=== PATIENT | female | born 1985 | race Hispanic/Latino ===

== ENCOUNTER 2016-07-25 19:11 | Emergency (ER) | payer SELFPAY ==
[2016-07-25] MEDS ORDERED: Tetracaine HCl 0.5% Ophth Soln 2 ML Bottle ONE (19:25)
[2016-07-25] MEDS ORDERED: Fluorescein Opthalmic Strip ONE (19:25)
[2016-07-25] MEDS ORDERED: HYDROcodone/Acetaminophen 10/325 mg Tablet ONE (19:38)
--- NOTE | 2016-07-25 19:53 | ERRECORD ---
[facility] EMERGENCY RECORD HPI EYE COMPLAINT (19:42 RWAG) CHIEF COMPLAINT: Patient presents for evaluation of pain, to bilateral eyes, Patient presents for evaluation of redness, to bilateral eyes. HISTORIAN: History provided by patient, wears soft contacts. MECHANISM OF INJURY: Unknown. LOCATION: Symptoms are localized, most severe in bilateral eyes. QUALITY: Described as similar to previous episodes. SEVERITY: Maximum severity of symptoms severe, Currently symptoms are severe, Maximum severity of pain rated as 9/10, Current severity of pain rated as 9/10. TIME COURSE: Gradual onset of symptoms, There has been no change in the patient's symptoms over time. ASSOCIATED WITH: Associated with contact use, constant. EXACERBATED BY: Patient's condition exacerbated by nothing. RELIEVED BY: Patient's condition relieved by nothing. ROS (19:44 RWAG) CONSTITUTIONAL: Negative constitutional review of systems. EYES: Historian reports eye pain, reports eye redness, reports tearing. ENT: Negative ears, nose, throat review of systems. CARDIOVASCULAR: Negative cardiovascular review of systems. RESPIRATORY: Negative respiratory review of systems. GI: Negative gastrointestinal review of systems. GENITOURINARY FEMALE: Negative genitourinary review of systems. MUSCULOSKELETAL: Negative musculoskeletal review of systems. SKIN: Negative skin review of systems. NEUROLOGIC: Negative neurologic review of systems. ENDOCRINE: Negative endocrine review of systems. HEMO/LYMPHATIC: Normal hematologic/lymphatic system review. ALLERGIC/IMMUNOLOGIC: Normal allergy/immunologic system review. PSYCHIATRIC: Negative psychiatric review of systems. NOTES: All systems reviewed, negative except as described above. PAST MEDICAL HISTORY (19:19 IHAC) MEDICAL HISTORY: No past medical history, Flu vaccine not up to date, Tetanus immunization up to date. FEMALE SURGICAL HISTORY: WITH D&C,. Heart surgery to take out extra tissue on 2012. PSYCHIATRIC HISTORY: No previous psychiatric history. SOCIAL HISTORY: Patient denies alcohol use, Patient denies drug use, Patient currently uses tobacco, smokes cigarettes, daily, patient has smoked for one year, Patient smokes 1/2 packs per day. &a-1R&a+25V*p+0X*f8131D*c202B*c15G*c2P*p-0X&a-25V&a+1R Name: Marlee Montoya : 1985 F31 MedRec: [id number] AcctNum: [id number] Prepared: Kelsey Jul 25, 2016 20:04 by Interface Page 1 of 3 pMD [facility] EMERGENCY RECORD KNOWN ALLERGIES No Known Drug Allergies CURRENT MEDICATIONS (19:17 IHAC) None VITAL SIGNS (19:17 IHAC) VITAL SIGNS: BP: 126/83, Pulse: 83, Resp: 18 (Non-Labored), Temp: 98.2 (Oral), Pain: 10, O2 sat: 98 on Room Air, Time: 07/25/2016 19:17. PHYSICAL EXAM (19:44 RWAG) CONSTITUTIONAL: Vital Signs Reviewed. HEAD: Head exam normal. EYES: Conjunctiva, injected bilaterally, not edematous, Sclera normal, Atraumatic, Eye exam included findings of anterior chamber clear. ENT: ENT exam normal. NECK: Neck exam normal. RESPIRATORY CHEST: Respiratory and chest exam normal. CARDIOVASCULAR: Cardiovascular assessment normal. ABDOMEN FEMALE: Abdominal exam normal. BACK: Back exam normal. UPPER EXTREMITY: Upper extremity exam normal. LOWER EXTREMITY: Lower extremity exam normal. NEURO: Neuro exam normal. SKIN: Skin exam normal. LYMPHATIC: Lymphatic exam normal. PSYCHIATRIC: Psychiatric exam normal. MEDICATION ADMINISTRATION SUMMARY Drug Name: [place], Dose Ordered: 1 tab(s), Route: Oral, Status: Given, Time: 19:42 07/25/2016, Drug Name: tetracaine HCl, Dose Ordered: 1 Drps, Route: Eyes Both, Status: Given, Time: 19:41 07/25/2016, Detailed record available in Medication Service section. PROBLEM LIST No recorded problems DIAGNOSIS (19:36 RWAG) FINAL: PRIMARY: UNS ACUTE CONJUNCTIVITIS BILATERAL. PRESCRIPTION Ultram: TABLET : 50 mg : ORAL : Quantity: 2 Unit: tab(s) Route: ORAL Schedule: every 6 hours PRN Dispense: 20 Unit: tab(s) May substitute. Refills: No Refills . (19:37 RWAG) NOTES: No Refills. (19:37 RWAG) gentamicin ophthalmic: DROPS : 0.3 % : OPHTHALMIC : Quantity: &a-1R&a+25V*p+0X*t5967P*c202B*c15G*c2P*p-0X&a-25V&a+1R Name: Marlee Montoya : 1985 F31 MedRec: [id number] AcctNum: [id number] Prepared: FriJul 25, 2016 20:04 by Interface Page 2 of 3 pMD [facility] EMERGENCY RECORD 2 Unit: gtt Route: OPHTHALMIC Schedule: every 8 hours PRN Dispense: 1 Unit: Tube May substitute. Refills: No Refills . (19:39 RWAG) NOTES: one bottle No Refills. (19:39 RWAG) Gentafair ophthalmic: DROPS : 0.3 % : OPHTHALMIC : Quantity: 2 Unit: gtt Route: OPHTHALMIC Schedule: every 6 hours PRN Dispense: 1 Unit: vial(s) May substitute. Refills: No Refills . (19:41 RWAG) NOTES: one bottle No Refills. (19:41 RWAG) DISPOSITION PATIENT: Disposition Type: Discharge, Disposition: *Discharge Home, Disposition Transport: Car, Condition: Improved. (19:36 RWAG) Patient left the department. (19:49 EPIE) Ponce: EPIE=RAIN Owen, Denisse IHAC=Alejandra Putnam RWAG=MD Ant, Deny &a-1R&a+25V*p+0X*f0580J*c202B*c15G*c2P*p-0X&a-25V&a+1R Name: Marlee Montoya : 1985 1 MedRec: [id number] AcctNum: [id number] Prepared: FriJul 25, 2016 20:04 by Interface Page 3 of 3 pMD MTDD
--- NOTE | 2016-07-25 20:02 | PICIS ---
[facility] EMERGENCY RECORD TRIAGE (19:17 IHAC) TRIAGE NOTES: Pt states that her eyes are burning starting yesterday. States she put in some eye drops and have been burning since. Pt has removed contacts. (19:17 IHAC) PATIENT: NAME: Marlee Montoya, AGE: 31, GENDER: female, : Sun 1985, TIME OF GREET: Kelsey Jul 25, 2016 19:12, PREFERRED LANGUAGE: Beninese, ETHNICITY: or , ECODE BILLING MAP: [facility], SSN: [id number], Zip Code: [address], KG WEIGHT: 52.16, PHONE: , , , PERSON ID: [id number], PCP: NONE. (19:17 IHAC) COMPLAINT: EYES IRRITATED; TOP OF HEAD PAIN. (19:17 IHAC) ADMISSION: URGENCY: 4 Non Urgent, ADMISSION SOURCE: Home, TRANSPORT: CAR, BED: TRIAGE. (19:17 IHAC) TRIAGE SCREENING: Patient denies suicidal ideation, Patient denies presence of domestic violence. (19:19 IHAC) TREATMENTS IN PROGRESS: Treatments given Prehospital: none. (19:19 IHAC) PROVIDERS: TRIAGE NURSE: Alejandra Putnam. (19:17 IHAC) VITAL SIGNS: BP 126/83, Pulse 83, Resp 18, (Non-Labored), Temp 98.2, (Oral), Pain 10, O2 Sat 98, on Room Air, Time 07/25/2016 19:17. (19:17 IHAC) PREVIOUS VISIT ALLERGIES: No Known Drug Allergies. (19:17 IHAC) No Known Drug Allergies. (19:19 IHAC) KNOWN ALLERGIES No Known Drug Allergies CURRENT MEDICATIONS (19:17 IHAC) None VITAL SIGNS (19:17 IHAC) VITAL SIGNS: BP: 126/83, Pulse: 83, Resp: 18 (Non-Labored), Temp: 98.2 (Oral), Pain: 10, O2 sat: 98 on Room Air, Time: 07/25/2016 19:17. NURSING ASSESSMENT: EYE (19:23 EPIE) CONSTITUTIONAL: Patient arrives ambulatory, Gait steady, History obtained from patient, Patient appears, uncomfortable, Patient cooperative, Patient alert, Oriented to person, place and time, Skin warm, Skin dry, Skin normal in color, Mucous membranes pink, Mucous membranes moist, Patient is well-groomed, Pt states that her eyes are burning starting yesterday. States she put in some eye drops and have been burning since. Pt has removed contacts. PAIN: burning pain, Both eyes, PT REPORTS PAIN ON FACE AROUND EYES AND HEAD PAIN, Onset of pain 07/24/2016, on a scale 0-10 patient rates pain as 10, Pain exacerbated by nothing, Nothing has been tried to alleviate the pain. EYES: Eye assessment findings include orbits normal, Eye lids normal, Conjunctiva, injected on the left, injected on the right, Sclera normal, Cornea clear, Iris &a-1R&a+25V*p+0X*w0726J*c202B*c15G*c2P*p-0X&a-25V&a+1R Name: Marlee Montoya : 1985 F31 MedRec: [id number] AcctNum: [id number] Prepared: [facility] Jul 25, 2016 20:10 by Interface Page 1 of 5 pMD [facility] EMERGENCY RECORD normal, Pupils equally round and reactive to light, no associated exposure to chemical or fluids, Associated with photophobia, Associated with tearing, to bilateral eyes, Visual acuity performed, Left eye: 20/40, Right eye: 20/40, Both eyes: 20/30, Notes: PT PUT ON VISINE BEOFRE HAVING PAIN IN BILATERAL EYES. NURSING PROCEDURE: DISCHARGE NOTE (19:46 EPIE) DISCHARGE: Patient discharged to home, ambulating without assistance, friend driving, accompanied by friend, Summary of Care printed/ provided, Discharge instructions given to patient, Simple or moderate discharge teaching performed, Prescriptions given and instructions on side effects given, Name of prescription(s) given: gentamicin, ultram, Above person(s) verbalized understanding of discharge instructions and follow-up care. BELONGINGS: Belongings and valuables with patient upon arrival to the Emergency Department include:, Belongings and valuables with patient at time of discharge include:, Belongings remain with patient, Valuables remain with patient. MEDICATION ADMINISTRATION SUMMARY Drug Name: [place], Dose Ordered: 1 tab(s), Route: Oral, Status: Given, Time: 19:42 07/25/2016, Drug Name: tetracaine HCl, Dose Ordered: 1 Drps, Route: Eyes Both, Status: Given, Time: 19:41 07/25/2016, Detailed record available in Medication Service section. MEDICATION SERVICE Dante: Order: Dante (hydrocodone bitartrate/acetaminophen) - Dose: 1 tab(s) : Oral Schedule: Now Ordered by: Deny Cain MD Entered by: Deny Cain MD [facility] Jul 25, 2016 19:36 , Acknowledged by: Denisse Owen RN [facility] Jul 25, 2016 19:37 Documented as given by: Denisse Owen RN [facility] Jul 25, 2016 19:42 Patient, Medication, Dose, Route and Time verified prior to administration. Amount given: 10-325mg, Site: Medication administered P.O., Patient appears Awake and alert- acceptable, Correct patient, time, route, dose and medication confirmed prior to administration, Patient advised of actions and side-effects prior to administration, Allergies confirmed and medications reviewed prior to administration, Patient in position of comfort, Side rails up, Cart in lowest position, Family at bedside, Dosage verified by ERMD verbally. tetracaine HCl: Order: tetracaine HCl - Dose: 1 Drps : Eyes Both Schedule: Now Ordered by: Deny Cain MD Entered by: Deny Cain MD [facility] Jul 25, 2016 19:35 , &a-1R&a+25V*p+0X*s1395D*c202B*c15G*c2P*p-0X&a-25V&a+1R Name: Marlee Montoya : 1985 F31 MedRec: [id number] AcctNum: [id number] Prepared: Kelsey Jul 25, 2016 20:10 by Interface Page 2 of 5 pMD [facility] EMERGENCY RECORD Acknowledged by: Denisse Owen RN [facility] Jul 25, 2016 19:35 Documented as given by: Denisse Owen RN [facility] Jul 25, 2016 19:41 Patient, Medication, Dose, Route and Time verified prior to administration. Amount given: 1DROP, Site: Medication administered bilaterally, Correct patient, time, route, dose and medication confirmed prior to administration, Patient advised of actions and side-effects prior to administration, Allergies confirmed and medications reviewed prior to administration, Administered by Ant KIM. HPI EYE COMPLAINT (19:42 RW) CHIEF COMPLAINT: Patient presents for evaluation of pain, to bilateral eyes, Patient presents for evaluation of redness, to bilateral eyes. HISTORIAN: History provided by patient, wears soft contacts. MECHANISM OF INJURY: Unknown. LOCATION: Symptoms are localized, most severe in bilateral eyes. QUALITY: Described as similar to previous episodes. SEVERITY: Maximum severity of symptoms severe, Currently symptoms are severe, Maximum severity of pain rated as 9/10, Current severity of pain rated as 9/10. TIME COURSE: Gradual onset of symptoms, There has been no change in the patient's symptoms over time. ASSOCIATED WITH: Associated with contact use, constant. EXACERBATED BY: Patient's condition exacerbated by nothing. RELIEVED BY: Patient's condition relieved by nothing. ROS (19:44 RWAG) CONSTITUTIONAL: Negative constitutional review of systems. EYES: Historian reports eye pain, reports eye redness, reports tearing. ENT: Negative ears, nose, throat review of systems. CARDIOVASCULAR: Negative cardiovascular review of systems. RESPIRATORY: Negative respiratory review of systems. GI: Negative gastrointestinal review of systems. GENITOURINARY FEMALE: Negative genitourinary review of systems. MUSCULOSKELETAL: Negative musculoskeletal review of systems. SKIN: Negative skin review of systems. NEUROLOGIC: Negative neurologic review of systems. ENDOCRINE: Negative endocrine review of systems. HEMO/LYMPHATIC: Normal hematologic/lymphatic system review. ALLERGIC/IMMUNOLOGIC: Normal allergy/immunologic system review. PSYCHIATRIC: Negative psychiatric review of systems. NOTES: All systems reviewed, negative except as described above. PAST MEDICAL HISTORY (19:19 IHAC) &a-1R&a+25V*p+0X*o2681H*c202B*c15G*c2P*p-0X&a-25V&a+1R Name: Marlee Montoya : 1985 F31 MedRec: [id number] AcctNum: [id number] Prepared: Kelsey Jul 25, 2016 20:10 by Interface Page 3 of 5 pMD [facility] EMERGENCY RECORD MEDICAL HISTORY: No past medical history, Flu vaccine not up to date, Tetanus immunization up to date. FEMALE SURGICAL HISTORY: WITH D&C,. Heart surgery to take out extra tissue on 2012. PSYCHIATRIC HISTORY: No previous psychiatric history. SOCIAL HISTORY: Patient denies alcohol use, Patient denies drug use, Patient currently uses tobacco, smokes cigarettes, daily, patient has smoked for one year, Patient smokes 1/2 packs per day. PHYSICAL EXAM (19:44 RWAG) CONSTITUTIONAL: Vital Signs Reviewed. HEAD: Head exam normal. EYES: Conjunctiva, injected bilaterally, not edematous, Sclera normal, Atraumatic, Eye exam included findings of anterior chamber clear. ENT: ENT exam normal. NECK: Neck exam normal. RESPIRATORY CHEST: Respiratory and chest exam normal. CARDIOVASCULAR: Cardiovascular assessment normal. ABDOMEN FEMALE: Abdominal exam normal. BACK: Back exam normal. UPPER EXTREMITY: Upper extremity exam normal. LOWER EXTREMITY: Lower extremity exam normal. NEURO: Neuro exam normal. SKIN: Skin exam normal. LYMPHATIC: Lymphatic exam normal. PSYCHIATRIC: Psychiatric exam normal. EVENTS TRANSFER: Triage to Emergency Triage. (FriJul 25, 2016 19:17 IHAC) Emergency Triage to Emergency Room -05. (19:17 IHAC) Removed from Emergency Emergency Room -05. (19:49 EPIE) PROBLEM LIST No recorded problems DIAGNOSIS (19:36 RWAG) FINAL: PRIMARY: UNS ACUTE CONJUNCTIVITIS BILATERAL. DISPOSITION PATIENT: Disposition Type: Discharge, Disposition: *Discharge Home, Disposition Transport: Car, Condition: Improved. (19:36 RWAG) Patient left the department. (19:49 EPIE) INSTRUCTION (19:41 RWAG) DISCHARGE: CONJUNCTIVITIS, BACTERIAL. SPECIAL: Follow-up with your PCP. &a-1R&a+25V*p+0X*c1728S*c202B*c15G*c2P*p-0X&a-25V&a+1R Name: Marlee Montoya : 1985 F31 MedRec: [id number] AcctNum: [id number] Prepared: FriJul 25, 2016 20:10 by Interface Page 4 of 5 pMD [facility] EMERGENCY RECORD PRESCRIPTION Ultram: TABLET : 50 mg : ORAL : Quantity: 2 Unit: tab(s) Route: ORAL Schedule: every 6 hours PRN Dispense: 20 Unit: tab(s) May substitute. Refills: No Refills . (19:37 RWAG) NOTES: No Refills. (19:37 RWAG) gentamicin ophthalmic: DROPS : 0.3 % : OPHTHALMIC : Quantity: 2 Unit: gtt Route: OPHTHALMIC Schedule: every 8 hours PRN Dispense: 1 Unit: Tube May substitute. Refills: No Refills . (19:39 RWAG) NOTES: one bottle No Refills. (19:39 RWAG) Gentafair ophthalmic: DROPS : 0.3 % : OPHTHALMIC : Quantity: 2 Unit: gtt Route: OPHTHALMIC Schedule: every 6 hours PRN Dispense: 1 Unit: vial(s) May substitute. Refills: No Refills . (19:41 RWAG) NOTES: one bottle No Refills. (19:41 RWAG) IMAGING (19:48 EPIE) *DISCHARGE INSTRUCTIONS RECEIPT: Image captured from scanner. *SUPPLY CHARGE SHEET: Image captured from scanner. ADMIN (19:59 RWAG) DIGITAL SIGNATURE: MD Cain Richard. Ponce: EPIE=RAIN Owen, Denisse IHAC=Alejandra Putnam RWAG=MD Cain Richard &a-1R&a+25V*p+0X*t8461U*c202B*c15G*c2P*p-0X&a-25V&a+1R Name: Marlee Montoya : 1985 F31 MedRec: [id number] AcctNum: [id number] Prepared: [facility] Jul 25, 2016 20:10 by Interface Page 5 of 5 pMD MTDD
== END 2016-07-25 19:46 | disposition home or self-care (01) ==
LOC: NAV ERS 19:11
DX: H10.33 Unspecified acute conjunctivitis, bilateral (principal); F17.210 Nicotine dependence, cigarettes, uncomplicated
CPT/HCPCS: 99283

== ENCOUNTER 2016-10-22 11:40 | Emergency (ER) | payer SELFPAY ==
--- NOTE | 2016-10-22 12:19 | RAD ---
PA AND LATERAL CHEST HISTORY: A 31-year-old female with a cough, as well as a sore throat, congestion, and a headache. FINDINGS: Heart size is normal. Lungs are clear. No acute intrathoracic disease. IMPRESSION: 1. No acute intrathoracic disease. 2. No evidence for pneumonia. POS: [facility]
== END 2016-10-22 13:03 | disposition home or self-care (01) ==
LOC: NAV ERS 11:40
DX: J20.9 Acute bronchitis, unspecified (principal); M94.0 Chondrocostal junction syndrome [Tietze]; F17.210 Nicotine dependence, cigarettes, uncomplicated; Z71.6 Tobacco abuse counseling
CPT/HCPCS: 71020

== ENCOUNTER 2017-03-13 08:29 | Emergency (ER) | payer BC ==
[2017-03-13] MEDS ORDERED: Ketorolac Tromethamine 30 MG/ML VIAL ONE (08:47)
[2017-03-13] MEDS ORDERED: Ondansetron ODT 4 MG TAB ONE (08:48)
[2017-03-13 09:00] LABS: Bilirubin Negative (Negative); Blood, Urine Trace (Negative); Clarity Clear (Clear); Glucose, Urine (Dipstick) Negative (Negative); Leukocyte Negative (Negative); Nitrite Negative (Negative); Protein, Urine (Dipstick) Negative (Neg-Trace); Urobilinogen 0.2 mg/dL (0.2-1.0)
[2017-03-13 09:03] LABS: #Basophils 0.1 thou/uL (0.0-0.2); #Eosinphils 0.1 thou/uL (0.0-0.7); #Lymphocytes 2.9 thou/uL (1.20-3.40); #Monocytes 0.3 thou/uL (0.11-0.59); #Neutrophils 3.2 thou/uL (1.40-6.50); %Basophils 1.4 % (0.0-1.0); %Lymphocytes 44.5 % (21.0-51.0); %Monocytes 4.6 % (0.0-10.0); %Neutrophils 48.6 % (42.0-75.0); Hemoglobin 14.4 g/dL (12.0-16.0); Mean Corpuscular HGB CONC 33.1 g/dL (32.0-36.0); Mean Corpuscular Hemoglobin 30.9 pg (27.0-31.0); Mean Corpuscular Volume 93.4 fl (81.0-99.0); Platelet Count 230 thou/uL (130-400); RBC Distribution Width 11.2 % (11.5-14.5); Red Blood Cell (RBC) Count 4.67 mill/uL (4.20-5.40); White Blood Cell (WBC) Count 6.5 thou/uL (4.8-10.8)
[2017-03-13 09:07] LABS: Pregnancy Test - Urine (BHCG) Negative (NEGATIVE); Pregu Control Background? CLEAR/WHITE (CLR/WHITE); Pregu Control Bar Appear? YES (CONTROL BAR)
[2017-03-13 09:08] LABS: Bacteria/HPF Rare-Few HPF (None Seen); RBC/HPF 0-3 HPF (0-3); WBC/HPF 0-3 HPF (0-3)
[2017-03-13 09:09] LABS: Other Microscopic Description NO
[2017-03-13 09:20] LABS: ALT (SGPT) 10 U/L (8-55); AST (SGOT) 18 U/L (5-34); Albumin 4.8 g/dL (3.5-5.0); Alkaline Phosphatase 52 U/L (40-150); Anion Gap 13 mmol/L (10-20); BUN (Urea Nitrogen) 7 mg/dL (7.0-18.7); Bilirubin, Total 0.4 mg/dL (0.2-1.2); Calc. Creatinine Clearance 0 mL/min (70-130); Calcium 9.1 mg/dL (7.8-10.44); Carbon Dioxide 25 mmol/L (22-29); Chloride 105 mmol/L (98-107); Estimated GFR-MDRD Greater than 90; Globulin 3.5 g/dL (2.4-3.5); Glucose 81 mg/dL (70-105); Lipase 24 U/L (8-78); Potassium 3.7 mmol/L (3.5-5.1); Protein, Total 8.3 g/dL (6.0-8.3); Sodium 139 mmol/L (136-145)
== END 2017-03-13 10:07 | disposition home or self-care (01) ==
LOC: NAV ERS 08:29
DX: R10.13 Epigastric pain (principal); R10.33 Periumbilical pain; R11.0 Nausea; F17.210 Nicotine dependence, cigarettes, uncomplicated
CPT/HCPCS: 80053; 81003; 81015; 81025; 83690; 85025; 86677; 96374; J1885; Q0162

== ENCOUNTER 2017-09-04 10:22 | Emergency (ER) | payer BC ==
[2017-09-04] MEDS ORDERED: Sulfameth/Trimethoprim DS 800-160mg TAB ONE (11:03)
== END 2017-09-04 11:19 ==
LOC: NAV ERS 10:22
DX: L02.413 Cutaneous abscess of right upper limb (principal); F17.210 Nicotine dependence, cigarettes, uncomplicated
CPT/HCPCS: 99406

== ENCOUNTER 2019-09-17 12:06 | Emergency (ER) | payer BC, SELFPAY ==
[2019-09-17] MEDS ORDERED: Ibuprofen 200 MG TAB ONE (12:21)
[2019-09-17] MEDS ORDERED: Sodium Chloride 0.9% 1,000 ML ONE (13:09)
[2019-09-17] MEDS ORDERED: Ondansetron PF 4 MG/2 ML Vial ONE (13:09)
[2019-09-17 13:19] LABS: #Basophils 0.1 thou/uL (0.0-0.2); #Lymphocytes 0.9 thou/uL (1.20-3.40); #Monocytes 0.6 thou/uL (0.11-0.59); #Neutrophils 4.5 thou/uL (1.40-6.50); %Basophils 1.4 % (0.0-1.0); %Lymphocytes 15.2 % (21.0-51.0); %Monocytes 9.6 % (0.0-10.0); %Neutrophils 73.8 % (42.0-75.0); Hemoglobin 14.7 g/dL (12.0-16.0); Mean Corpuscular HGB CONC 34.5 g/dL (32.0-36.0); Mean Corpuscular Hemoglobin 30.9 pg (27.0-31.0); Mean Corpuscular Volume 89.5 fL (78.0-98.0); Mean Platelet Volume 7.8 fL (7.4-10.4); Platelet Count 234 thou/uL (130-400); RBC Distribution Width 11.5 % (11.5-14.5); Red Blood Cell (RBC) Count 4.76 mill/uL (4.20-5.40); White Blood Cell (WBC) Count 6.1 thou/uL (4.8-10.8)
[2019-09-17 13:27] LABS: BHCG - Serum Negative (NEGATIVE); Pregs Control Bar Appear? YES (CONTROL BAR)
[2019-09-17 13:32] LABS: ALT (SGPT) 12 U/L (8-55); AST (SGOT) 20 U/L (5-34); Albumin 4.4 g/dL (3.5-5.0); Alkaline Phosphatase 53 U/L (40-110); Anion Gap 16 mmol/L (10-20); BUN (Urea Nitrogen) 11 mg/dL (7.0-18.7); Bilirubin, Total 0.3 mg/dL (0.2-1.2); Calc. Creatinine Clearance 0 mL/min (70-130); Calcium 8.4 mg/dL (7.8-10.44); Carbon Dioxide 19 mmol/L (22-29); Chloride 98 mmol/L (98-107); Estimated GFR-MDRD 90; Globulin 3.2 g/dL (2.4-3.5); Glucose 84 mg/dL (70-105); Potassium 3.9 mmol/L (3.5-5.1); Protein, Total 7.6 g/dL (6.0-8.3); Sodium 129 mmol/L (136-145)
[2019-09-17 14:00] LABS: Bilirubin Small (Negative); Blood, Urine Large (Negative); Glucose, Urine (Dipstick) Negative (Negative); Leukocyte Small (Negative); Nitrite Negative (Negative); Protein, Urine (Dipstick) 100 mg/dL (Neg-Trace); Urobilinogen 0.2 mg/dL (Less than 2)
[2019-09-17 14:01] LABS: Clarity Hazy (Clear)
[2019-09-17] MEDS ORDERED: Morphine 2 MG/ML SYRINGE ONE (14:06)
[2019-09-17 14:08] LABS: Bacteria/HPF 3+ HPF (None Seen); Transitional Epithelial 0-3 HPF (None Seen)
[2019-09-17] MEDS ORDERED: Fentanyl 100 MCG/2 ML VIAL ONE (14:16)
[2019-09-17 14:21] LABS: Amphetamine Detected (NotDetected); Barbiturates Screen Not Detected (NotDetected); Benzodiazepine Screen Not Detected (NotDetected); Cocaine Metabolite Screen Not Detected (NotDetected); Medtox Control Line Valid? VALID (VALID); Methadone Not Detected (NotDetected); Methamphetamine Detected (NotDetected); Opiate Screen Not Detected (NotDetected); Oxycodone Screen Not Detected (NotDetected); Phencyclidine (PCP) Not Detected (NotDetected); THC/Cannabinoid Screen Detected (NotDetected); Tricyclic Screen Not Detected (NotDetected)
--- NOTE | 2019-09-17 14:40 | RAD ---
PORTABLE CHEST: 09/17/19 HISTORY: Fever. Lungs are clear. Heart and mediastinum appear normal. IMPRESSION: Negative chest. POS: [facility]
--- NOTE | 2019-09-17 14:58 | CT ---
CT ABDOMEN AND PELVIS WITH IV CONTRAST 09/17/2019 CLINICAL INFORMATION: Abdominal pain for 2 days with fever. Patient pointed suprapubic abdominal pain. COMPARISON: 09/08/2012 Technique: Multiple contiguous axial CT images are obtained through the abdomen and pelvis with IV contrast. Cor onal reformatted images are provided. FINDINGS: Lower Chest: Lung bases are clear. Vessels: Abdominal aorta is normal in caliber without evidence of an aortic dissection. Abdomen: Portal vein:Patent Gallbladder: Surgically absent. Liver: within normal limits. Spleen: within normal limits. Pancreas: within normal limits. Adrenals: within normal limits. Kidneys: Subcentimeter too small to characterize hypodense lesion is seen in the midportion left kidn ey also seen on prior study in 2013 but is slightly larger in size. This is too small to characterize. No enhancing renal lesion is seen bilaterally. Bowel: Loops of small bowel are normal in caliber. Fluid-filled loops of ascending colon are present. Appendix: Where imaged, the appendix does appear normal in caliber. Peritoneum: No ascites or free air; no fluid collection. Mesentery and Retroperitoneum: No enlarged mesenteric or retroperitoneal lymph nodes. Abdominal Wall: within normal limits. Pelvis: Reproductive Organs: The right ovary is prominent in size. There is an irregular hypodense lesion in the right ovary measuring 2.1 cm with enhancing rim. This probably represents an involuting cyst or follicle. Previously seen intrauterine contraceptive device noted on prior study has been removed. Ut erus is overall stable in size. Pelvis within normal limits. Bladder: Decompressed and not well evaluated. Bones: There is partial sacralization of the L5 vertebral body on the right with pseudoarticulation t he right lateral mass of L5 with S1. IMPRESSION: 1. No acute findings in the abdomen or pelvis. 2. Probable involuting cyst right ovary.
[2019-09-17] MEDS ORDERED: Cephalexin 250 MG CAP ONE (15:20)
== END 2019-09-17 15:37 | disposition home or self-care (01) ==
LOC: NAV ERS 12:06
DX: N39.0 Urinary tract infection, site not specified (principal); N83.201 Unspecified ovarian cyst, right side; E87.1 Hypo-osmolality and hyponatremia; R11.0 Nausea; F17.210 Nicotine dependence, cigarettes, uncomplicated
CPT/HCPCS: 71045; 74177; 80053; 80306; 81003; 81015; 83605; 84703; 85025; 86140; 87081; 87086; 87430; 87804; 94760; 96361; 96374; 96375; J2270; J2405; J3010; J7050